=== PATIENT | female | born 1980 ===

== ENCOUNTER 2021-12-06 05:46 | Inpatient (IN) | payer BC ==
[2021-12-06] MEDS ORDERED: Sodium Chloride 0.9% 2.5 ML Syringe FLUSH PRN (06:31)
[2021-12-06] MEDS ORDERED: Sodium Chloride 0.9% 20 ML SDV IV PRN (06:31)
[2021-12-06] MEDS ORDERED: Sodium Chloride 0.9% 10 ML Syringe FLUSH PRN (06:31)
[2021-12-06] MEDS ORDERED: Citric Acid/Sodium Citrate Solution 30 ML Cup PO ONE (06:31)
[2021-12-06] MEDS ORDERED: ceFAZolin 2 GM in Premix Bag 1 BAG IV ONE (06:31)
[2021-12-06] MEDS ORDERED: Oxytocin/0.9 % Sodium Chloride 30 UNIT/500 ML BAG IV SCH (06:45)
[2021-12-06] MEDS ORDERED: Dexmedetomidine 200 MCG/2 ML SDV ONE (07:21)
[2021-12-06] MEDS ORDERED: Phenylephrine HCl In 0.9% NaCl 1 MG/10 ML Vial ONE (07:21)
[2021-12-06] MEDS ORDERED: Dexamethasone 4 MG/ML 5 ML MDV ONE (07:21)
[2021-12-06] MEDS ORDERED: Oxytocin 10 Units/1 ML SDV ONE (07:21)
[2021-12-06] MEDS ORDERED: Water For Injection, Sterile 20 ML ONE ×3 (07:21→08:27)
[2021-12-06] MEDS ORDERED: ceFAZolin 1 GM Vial ONE (07:21)
[2021-12-06] MEDS ORDERED: Morphine PF 10 MG/10 ML SDV ONE (07:22)
[2021-12-06] MEDS: Lactated Ringers 1,000 ML IV SCH ×2 (07:33→07:34)
[2021-12-06] MEDS ORDERED: Tranexamic Acid 1,000 MG in Sodium Chloride 0.9% 100 ML IV PRN (07:47)
[2021-12-06] MEDS ORDERED: Oxytocin 10 Units/1 ML SDV IM PRN (07:47)
[2021-12-06] MEDS ORDERED: Misoprostol 200 MCG Tab RECTAL PRN (07:47)
[2021-12-06] MEDS ORDERED: Methylergonovine 0.2 MG/1 ML Amp IM PRN (07:47)
[2021-12-06] MEDS ORDERED: Ondansetron 4 MG/2 ML SDV IVPUSH PRN ×2 (07:47→10:18)
[2021-12-06] MEDS ORDERED: diphenhydrAMINE 50 MG/ML SDV IVPUSH PRN (07:47)
[2021-12-06] MEDS ORDERED: Bisacodyl 10 MG Supp RECTAL PRN (07:47)
[2021-12-06] MEDS ORDERED: Lanolin 100% Cream 7 GM Tube TOP PRN (07:47)
[2021-12-06] MEDS ORDERED: Acetaminophen/oxyCODONE 325-5 MG Tab PO PRN (07:47)
[2021-12-06] MEDS ORDERED: Lactated Ringers 1,000 ML IV SCH (08:00)
[2021-12-06] MEDS ORDERED: Ropivacaine 0.5% 5 MG/ML 30 ML SDV ONE (08:23)
[2021-12-06] MEDS ORDERED: Ketorolac 30 MG/ML SDV ONE (10:04)
[2021-12-06] MEDS: Ketorolac 30 MG/ML SDV IVPUSH SCH ×3 (10:08→23:41)
[2021-12-06] MEDS ORDERED: Albuterol 0.083% 2.5 MG/3 ML Neb Soln NEB PRN (10:18)
[2021-12-06] MEDS ORDERED: Naloxone 0.4 MG/ML SDV IVPUSH PRN (10:18)
[2021-12-06] MEDS ORDERED: fentaNYL 50 MCG/ML SDV IVPUSH PRN (10:18)
[2021-12-06] MEDS ORDERED: HYDROmorphone 1 MG/ML Syringe IVPUSH PRN (10:18)
[2021-12-06] MEDS ORDERED: ePHEDrine 50 MG/ML SDV IVPUSH PRN (10:20)
[2021-12-06] MEDS ORDERED: Phenylephrine HCl In 0.9% NaCl 1 MG/10 ML Vial IVPUSH SCH (10:30)
[2021-12-06] MEDS: Docusate Sodium 100 MG Cap PO SCH (23:40)
[2021-12-07] MEDS: Ketorolac 30 MG/ML SDV IVPUSH SCH (05:54)
[2021-12-07] MEDS: Docusate Sodium 100 MG Cap PO SCH ×2 (09:54→20:56)
[2021-12-07] MEDS ORDERED: Ketorolac 30 MG/ML SDV IVPUSH SCH (12:15)
[2021-12-07] MEDS ORDERED: Ibuprofen 800 MG Tab PO PRN (14:00)
[2021-12-07] MEDS ORDERED: Simethicone 80 MG Tab.Chew PO ONE (20:00)
[2021-12-08] MEDS: Acetaminophen/oxyCODONE 325-5 MG Tab PO PRN ×2 (00:04→08:38)
[2021-12-08] MEDS: Docusate Sodium 100 MG Cap PO SCH (08:41)
== END 2021-12-08 13:35 | disposition home or self-care (01) | DRG 540 ==
LOC: MW.OB 05:46
PROVIDERS: ADMIT Obstetrics & Gynecology; ATTEND Obstetrics & Gynecology
PROC: 10D00Z1 Extraction of Products of Conception, Low, Open Approach (ICD-10-PCS; principal; 2021-12-06)
DX: O69.81X0 Labor and delivery complicated by cord around neck, without compression, not applicable or unspecified (principal); Z3A.39 39 weeks gestation of pregnancy; Z37.0 Single live birth; Z20.822 Contact with and (suspected) exposure to COVID-19
CPT/HCPCS: 01961; 36415; 59025; 64488; 85014; 85018; 85027; 86592; 86850; 86900; 86901; A9270-GY; J0690; J1100; J1885; J2274; J2590; J2795; J7120; U0002